=== PATIENT | female | born 1990 | race Two or more races ===

== ENCOUNTER 2020-05-19 09:01 | Inpatient (IN) | payer OTHER ==
[2020-05-19 10:25] LABS: BASO % 0.2 % (0-2.0); EOS % 2.2 % (0-4.5); HEMATOCRIT 35.5 % (32.4-45.2); LYMPH % 29.6 % (8-40); MCH 31.1 pg (25.7-33.7); MCHC 33.9 g/dl (32.0-36.0); MEAN CELL VOLUME 91.6 fl (80-96); MEAN PLT VOLUME 8.9 fl (7.5-11.1); MONO % 12.8 % (3.8-10.2); NEUT % 55.2 % (42.8-82.8); PLATELET COUNT 167 K/MM3 (134-434); RBC 3.88 M/mm3 (3.60-5.2); RDW 14.4 % (11.6-15.6)
[2020-05-19 10:32] LABS: INR 1.03 (0.83-1.09); PROTHROMBIN TIME (PATIENT) 12.4 SEC (9.7-13.0)
[2020-05-19 10:34] VITALS: BMI 41.5
[2020-05-19 10:35] LABS: ACTIVATED PTT 29.9 SECONDS (25.2-36.5)
[2020-05-19] MEDS ORDERED: OXYTOCIN 30 UNITS in 0.9% NS 30 UNIT/500 ML INFUS.BAG IVPB ONE (10:44)
[2020-05-19 10:55] LABS: CALCIUM 9.1 mg/dL (8.5-10.1)
[2020-05-19 10:56] LABS: BLOOD UREA NITROGEN 3.6 mg/dL (7-18)
[2020-05-19 10:59] LABS: CREATININE 0.6 mg/dL (0.55-1.3)
[2020-05-19] MEDS ORDERED: OXYTOCIN 30 UNITS in 0.9% NS 30 UNIT/500 ML INFUS.BAG IVPB SCH ×2 (11:00→20:00)
[2020-05-19] MEDS ORDERED: ELECTROLYTE-148 SOLN 1,000 ML IV SCH (11:00)
[2020-05-19 13:14] LABS: HIV INTERPRETATION NEGATIVE (NEGATIVE)
[2020-05-19] MEDS ORDERED: DEXTROSE 5%-LACTATED RINGERS 1,000 ML IV SCH (19:45)
[2020-05-19] MEDS ORDERED: PROMETHAZINE HCL 25 MG/1 ML VIAL IVPUSH ONE (19:45)
[2020-05-19] MEDS ORDERED: BUTORPHANOL TARTRATE 1 MG/ML VIAL IVPB ONE (19:45)
[2020-05-19] MEDS ORDERED: PCA PUMP NR ONE (21:41)
[2020-05-19] MEDS ORDERED: FENTANYL/BUPIVACAINE/NS/PF - PCEA - 50 ML DISP.SYRIN EP ONE (21:41)
[2020-05-19] MEDS ORDERED: BUPIVACAINE HCL/PF 0.25% (2.5MG/ML) 10 ML VIAL ONE (21:43)
[2020-05-19] MEDS ORDERED: NALOXONE HCL 0.4 MG/ML VIAL IVPUSH PRN (22:01)
[2020-05-19] MEDS ORDERED: FENTANYL/BUPIVACAINE/NS/PF - PCEA - 50 ML DISP.SYRIN EP SCH (22:15)
[2020-05-19] MEDS ORDERED: LIDOCAINE HCL 1% PRESERVATIVE FREE - 30ML VIAL ONE (22:31)
[2020-05-19] MEDS ORDERED: OXYTOCIN 20 UNITS in 0.9% NS 20 UNIT/1,000 ML INFUS.BAG IV ONE (22:31)
[2020-05-19] MEDS ORDERED: oxyCODONE HCL 5 MG TABLET PO PRN (23:33)
[2020-05-19] MEDS ORDERED: BENZOCAINE 28 GM HEMORRHOIDAL OINTMENT TP PRN (23:33)
[2020-05-19] MEDS ORDERED: WITCH HAZEL 50% (TUCKS) 40 PAD/JAR PAD TP PRN (23:33)
[2020-05-19] MEDS ORDERED: BENZOCAINE 20% 57 GM BOTTLE TP PRN (23:33)
[2020-05-19] MEDS ORDERED: BISACODYL 10 MG SUPP.RECT RC PRN (23:33)
[2020-05-19] MEDS ORDERED: OXYTOCIN 20 UNITS in 0.9% NS 20 UNIT/1,000 ML INFUS.BAG IV SCH (23:45)
[2020-05-20] MEDS: METHYLERGONOVINE MALEATE 0.2 MG/1 ML AMP IM PRN ×2 (01:45→02:20)
[2020-05-20] MEDS: IBUPROFEN 600 MG TABLET (FP) PO PRN ×5 (02:15→23:34)
[2020-05-20] MEDS ORDERED: METHYLERGONOVINE MALEATE 0.2 MG/1 ML AMP IM ONE (02:30)
[2020-05-20] MEDS ORDERED: MISOPROSTOL 200 MCG TABLET PV ONE (03:41)
[2020-05-20] MEDS: oxyCODONE HCL 5 MG TABLET PO PRN ×3 (06:18→23:33)
[2020-05-20] MEDS: METHYLERGONOVINE MALEATE 0.2 MG TABLET (FP) PO SCH ×4 (06:19→23:34)
[2020-05-20 07:14] LABS: BASO % 0.1 % (0-2.0); EOS % 0.3 % (0-4.5); HEMATOCRIT 28.3 % (32.4-45.2); HEMOGLOBIN 9.6 GM/dL (10.7-15.3); LYMPH % 14.6 % (8-40); MCH 30.7 pg (25.7-33.7); MCHC 33.8 g/dl (32.0-36.0); MEAN CELL VOLUME 90.9 fl (80-96); MEAN PLT VOLUME 8.8 fl (7.5-11.1); MONO % 7.4 % (3.8-10.2); NEUT % 77.6 % (42.8-82.8); PLATELET COUNT 154 K/MM3 (134-434); RBC 3.11 M/mm3 (3.60-5.2); RDW 14.2 % (11.6-15.6); WHITE BLOOD COUNT 11.5 K/mm3 (4.0-10.0)
[2020-05-20] MEDS: FERROUS SO4 325 MG TABLET (FP) PO SCH ×2 (09:17→18:07)
[2020-05-20] MEDS: PRENATAL VITAMINS W/ FOLIC ACID TABLET (FP) PO SCH (09:17)
[2020-05-20] MEDS ORDERED: DIPHTH,PERTUSS(ACELL),TET 0.5 ML DISP.SYRIN IM ONE (10:00)
[2020-05-20] MEDS ORDERED: FLU VACCINE (FLULAVAL) PF 60 MCG/0.5 ML SYRINGE 2020-2021 IM ONE (11:00)
[2020-05-20] MEDS: ACETAMINOPHEN 325 MG TABLET (FP) PO PRN (11:52)
[2020-05-20] MEDS ORDERED: SENNOSIDES/DOCUSATE COMBO (SENNA PLUS) TABLET (UD) PO PRN (22:00)
[2020-05-21] MEDS: oxyCODONE HCL 5 MG TABLET PO PRN (05:08)
[2020-05-21] MEDS: METHYLERGONOVINE MALEATE 0.2 MG TABLET (FP) PO SCH (05:09)
[2020-05-21] MEDS: IBUPROFEN 600 MG TABLET (FP) PO PRN ×2 (05:09→10:58)
[2020-05-21] MEDS: FERROUS SO4 325 MG TABLET (FP) PO SCH (10:58)
[2020-05-21] MEDS: ACETAMINOPHEN 325 MG TABLET (FP) PO PRN (10:58)
[2020-05-21] MEDS: PRENATAL VITAMINS W/ FOLIC ACID TABLET (FP) PO SCH (10:58)
[2020-05-21 10:59] VITALS: BP 110/59; PULSE 94; TEMP 97.9
== END 2020-05-21 12:40 | disposition home or self-care (01) | DRG 560 ==
LOC: JLDR 09:01 → J3W 05-20 01:55
PROVIDERS: ADMIT Obstetrics & Gynecology; ATTEND Obstetrics & Gynecology
PROC: 10E0XZZ Delivery of Products of Conception, External Approach (ICD-10-PCS; principal; 2020-05-19)
PROC: 0HQ9XZZ Repair Perineum Skin, External Approach (ICD-10-PCS; 2020-05-19)
PROC: 0W8NXZZ Division of Female Perineum, External Approach (ICD-10-PCS; 2020-05-19)
DX: O70.0 First degree perineal laceration during delivery (principal); O48.0 Post-term pregnancy; Z3A.40 40 weeks gestation of pregnancy; O99.214 Obesity complicating childbirth; Z37.0 Single live birth
CPT/HCPCS: 36415; 59409; 80048; 85025; 85610; 85730; 86780; 86850; 86900; 86901; 87389; 90715; G0008; Q2036

== ENCOUNTER 2021-06-04 02:50 | Inpatient (IN) | payer OTHER ==
[2021-06-04] MEDS ORDERED: OXYTOCIN 20 UNITS in 0.9% NS 1000 ML INFUS.BAG IV ONE (02:55)
[2021-06-04 03:34] LABS: BASO % 0.3 % (0-2.0); EOS % 0.7 % (0-4.5); HEMATOCRIT 38.1 % (32.4-45.2); HEMOGLOBIN 12.9 GM/dL (10.7-15.3); LYMPH % 25.6 % (8-40); MCH 29.3 pg (25.7-33.7); MCHC 33.9 g/dl (32.0-36.0); MEAN CELL VOLUME 86.4 fl (80-96); MEAN PLT VOLUME 8.8 fl (7.5-11.1); MONO % 13.2 % (3.8-10.2); NEUT % 60.2 % (42.8-82.8); PLATELET COUNT 184 10^3/uL (134-434); RBC 4.41 M/mm3 (3.60-5.2); RDW 15.6 % (11.6-15.6); WHITE BLOOD COUNT 7.6 K/mm3 (4.0-10.0)
[2021-06-04 03:40] LABS: INR 0.97 (0.83-1.09); PROTHROMBIN TIME (PATIENT) 11.2 SEC (9.7-13.0)
[2021-06-04] MEDS ORDERED: OXYTOCIN 20 UNITS in 0.9% NS 20 UNIT/1,000 ML INFUS.BAG IV ONE (03:41)
[2021-06-04 03:42] LABS: ACTIVATED PTT 28.2 SECONDS (25.2-36.5)
[2021-06-04] MEDS ORDERED: BISACODYL 10 MG SUPP.RECT RC PRN (03:50)
[2021-06-04] MEDS ORDERED: BENZOCAINE 28 GM HEMORRHOIDAL OINTMENT TP PRN (03:50)
[2021-06-04] MEDS ORDERED: oxyCODONE HCL 5 MG TABLET PO PRN (03:50)
[2021-06-04] MEDS ORDERED: ACETAMINOPHEN 325 MG TABLET (FP) PO PRN (03:50)
[2021-06-04] MEDS ORDERED: METHYLERGONOVINE MALEATE 0.2 MG/1 ML AMP IM PRN (03:50)
[2021-06-04] MEDS ORDERED: WITCH HAZEL 50% (TUCKS) 40 PAD/JAR PAD TP PRN (03:50)
[2021-06-04] MEDS ORDERED: BENZOCAINE 20% 57 GM BOTTLE TP PRN (03:50)
[2021-06-04 03:53] LABS: BLOOD UREA NITROGEN 5.3 mg/dL (7-18); CALCIUM 9.3 mg/dL (8.5-10.1)
[2021-06-04 03:57] LABS: CREATININE 0.7 mg/dL (0.55-1.3)
[2021-06-04] MEDS ORDERED: OXYTOCIN 20 UNITS in 0.9% NS 20 UNIT/1,000 ML INFUS.BAG IV SCH (04:00)
[2021-06-04] MEDS ORDERED: IBUPROFEN 600 MG TABLET (FP) PO ONE (04:50)
[2021-06-04] MEDS: IBUPROFEN 600 MG TABLET (FP) PO PRN ×4 (04:50→18:09)
[2021-06-04 05:04] VITALS: BMI 40.7
[2021-06-04 06:57] LABS: HIV INTERPRETATION NEGATIVE (NEGATIVE)
[2021-06-05] MEDS: IBUPROFEN 600 MG TABLET (FP) PO PRN ×4 (02:55→21:18)
[2021-06-05 07:38] LABS: BASO % 0.2 % (0-2.0); EOS % 1.8 % (0-4.5); HEMOGLOBIN 9.7 GM/dL (10.7-15.3); LYMPH % 34.1 % (8-40); MCH 29.1 pg (25.7-33.7); MCHC 33.5 g/dl (32.0-36.0); MEAN CELL VOLUME 86.9 fl (80-96); MEAN PLT VOLUME 9.1 fl (7.5-11.1); MONO % 9.3 % (3.8-10.2); NEUT % 54.6 % (42.8-82.8); PLATELET COUNT 163 10^3/uL (134-434); RBC 3.34 M/mm3 (3.60-5.2); RDW 15.5 % (11.6-15.6); WHITE BLOOD COUNT 7.6 K/mm3 (4.0-10.0)
[2021-06-05] MEDS ORDERED: SENNOSIDES/DOCUSATE COMBO (SENNA PLUS) TABLET (UD) PO PRN (22:00)
[2021-06-06] MEDS: IBUPROFEN 600 MG TABLET (FP) PO PRN ×2 (05:50→11:07)
[2021-06-06 09:03] VITALS: BP 112/77; PULSE 80; TEMP 97.6
== END 2021-06-06 12:45 | disposition home or self-care (01) | DRG 560 ==
LOC: JER 02:50 → JERBED 03:07 → JLDR 04:19 → J3W 06:10
PROVIDERS: ADMIT Specialist; ATTEND Obstetrics & Gynecology
PROC: 10E0XZZ Delivery of Products of Conception, External Approach (ICD-10-PCS; principal; 2021-06-04)
DX: O62.3 Precipitate labor (principal); Z3A.39 39 weeks gestation of pregnancy; Z37.0 Single live birth
CPT/HCPCS: 36415; 59409; 80048; 85025; 85610; 85730; 86780; 86850; 86900; 86901; 87389; 88307-TC; 99285-25; C9803-CS; U0003; U0005

== ENCOUNTER 2024-01-28 07:40 | Inpatient (IN) | payer OTHER ==
[2024-01-28] MEDS: LACTATED RINGERS SOLUTION 1,000 ML/1,000 ML INFUS.BAG IV SCH (08:45)
[2024-01-28] MEDS ORDERED: OXYTOCIN 30 UNITS in 0.9% NS 30 UNIT/500 ML INFUS.BAG IVPB ONE (08:55)
[2024-01-28] MEDS: OXYTOCIN 30 UNITS in 0.9% NS 30 UNIT/500 ML INFUS.BAG IVPB SCH (09:03)
[2024-01-28 09:29] VITALS: BMI 44.1
[2024-01-28 09:46] LABS: BASO % 0.1 % (0-2.0); EOS % 1.7 % (0-4.5); HEMATOCRIT 36.1 % (32.4-45.2); HEMOGLOBIN 11.7 GM/dL (10.7-15.3); INR 0.93 (0.83-1.09); LYMPH % 31.7 % (8-40); MCH 28.1 pg (25.7-33.7); MCHC 32.5 g/dl (32.0-36.0); MEAN CELL VOLUME 86.6 fl (80-96); MEAN PLT VOLUME 9.1 fl (7.5-11.1); MONO % 10.8 % (3.8-10.2); NEUT % 55.7 % (42.8-82.8); PLATELET COUNT 176 10^3/uL (134-434); PROTHROMBIN TIME (PATIENT) 10.7 SEC (9.7-13.0); RBC 4.17 M/mm3 (3.60-5.2); RDW 15.8 % (11.6-15.6); WHITE BLOOD COUNT 6.4 K/mm3 (4.0-10.0)
[2024-01-28 10:07] LABS: POTASSIUM 4.2 mmol/L (3.5-5.1)
[2024-01-28 10:11] LABS: BLOOD UREA NITROGEN 6.8 mg/dL (7-18); CALCIUM 9.2 mg/dL (8.5-10.1)
[2024-01-28 10:16] LABS: CREATININE 0.6 mg/dL (0.55-1.3)
[2024-01-28] MEDS ORDERED: FENTANYL/BUPIVACAINE/NS/PF - PCEA - 50 ML DISP.SYRIN EP ONE (10:53)
[2024-01-28] MEDS ORDERED: NALOXONE HCL 0.4 MG/ML VIAL IVPUSH PRN (10:58)
[2024-01-28] MEDS ORDERED: BUPIVACAINE HCL/PF 0.25% (2.5MG/ML) 10 ML VIAL ONE ×2 (11:00→12:15)
[2024-01-28] MEDS: FENTANYL/BUPIVACAINE/NS/PF - PCEA - 50 ML DISP.SYRIN EP SCH (11:17)
[2024-01-28] MEDS ORDERED: OXYTOCIN 20 UNITS in 0.9% NS 20 UNIT/1,000 ML INFUS.BAG IV ONE (12:29)
[2024-01-28] MEDS ORDERED: MISOPROSTOL 200 MCG TABLET ONE (12:38)
[2024-01-28] MEDS: OXYTOCIN 20 UNITS in 0.9% NS 20 UNIT/1,000 ML INFUS.BAG IV SCH (12:45)
[2024-01-28 12:49] LABS: HIV INTERPRETATION NEGATIVE (NEGATIVE)
[2024-01-28] MEDS: MISOPROSTOL 100 MCG TABLET PV ONE (12:50)
[2024-01-28] MEDS ORDERED: MEPERIDINE HCL 25 MG/ML VIAL ONE (13:51)
[2024-01-28] MEDS ORDERED: ACETAMINOPHEN INJECTION 100 ML ONE (14:06)
[2024-01-28] MEDS ORDERED: METHYLERGONOVINE MALEATE 0.2 MG/1 ML AMP IM PRN (14:08)
[2024-01-28] MEDS ORDERED: BENZOCAINE 28 GM HEMORRHOIDAL OINTMENT TP PRN (14:08)
[2024-01-28] MEDS ORDERED: BISACODYL 10 MG SUPP.RECT RC PRN (14:08)
[2024-01-28] MEDS ORDERED: ACETAMINOPHEN 325 MG TABLET (FP) PO PRN (14:08)
[2024-01-28] MEDS ORDERED: WITCH HAZEL 50% (TUCKS) 40 PAD/JAR PAD TP PRN (14:08)
[2024-01-28] MEDS: ACETAMINOPHEN 1000 MG/100 ML BAG IVPB PRN (14:09)
[2024-01-28] MEDS: BENZOCAINE 20% 57 GM BOTTLE TP PRN (16:45)
[2024-01-28] MEDS: IBUPROFEN 600 MG TABLET (FP) PO PRN (16:45)
[2024-01-29 07:33] LABS: BASO % 0.1 % (0-2.0); EOS % 1.6 % (0-4.5); HEMATOCRIT 33.8 % (32.4-45.2); HEMOGLOBIN 11.2 GM/dL (10.7-15.3); LYMPH % 34.7 % (8-40); MCH 28.6 pg (25.7-33.7); MCHC 33.1 g/dl (32.0-36.0); MEAN CELL VOLUME 86.3 fl (80-96); MEAN PLT VOLUME 8.7 fl (7.5-11.1); MONO % 8.5 % (3.8-10.2); NEUT % 55.1 % (42.8-82.8); PLATELET COUNT 165 10^3/uL (134-434); RBC 3.91 M/mm3 (3.60-5.2); RDW 16.4 % (11.6-15.6); WHITE BLOOD COUNT 7.7 K/mm3 (4.0-10.0)
[2024-01-29] MEDS: DIPHTH,PERTUSS(ACELL),TET 0.5 ML DISP.SYRIN IM ONE (13:35)
[2024-01-29] MEDS: FLU VACCINE (FLULAVAL) PF 45 MCG/0.5 ML SYRINGE 2024-2025 IM ONE (13:39)
[2024-01-29] MEDS ORDERED: SENNOSIDES/DOCUSATE COMBO (SENNA PLUS) TABLET (UD) PO PRN (22:00)
[2024-01-29 22:03] VITALS: RESP 18
[2024-01-29] MEDS: oxyCODONE HCL 5 MG TABLET PO PRN (23:34)
[2024-01-30 11:25] VITALS: BP 112/69; PULSE 105; TEMP 98.8
== END 2024-01-30 14:15 | disposition home or self-care (01) | DRG 560 ==
LOC: JLDR 07:40 → J3W 15:20
PROVIDERS: ADMIT Obstetrics & Gynecology; ATTEND Obstetrics & Gynecology
PROC: 10E0XZZ Delivery of Products of Conception, External Approach (ICD-10-PCS; principal; 2024-01-28)
DX: O70.0 First degree perineal laceration during delivery (principal); Z3A.39 39 weeks gestation of pregnancy; Z37.0 Single live birth
CPT/HCPCS: 36415; 59409; 80048; 85025; 85610; 85730; 86780; 86850; 86900; 86901; 87389; 90656; 90715; G0008; J0131